=== PATIENT | male | born 1990 | race African-American/Black ===

== ENCOUNTER 2023-10-10 22:54 | Emergency (ER) | payer SELFPAY ==
[2023-10-10] MEDS ORDERED: Acetaminophen 500 MG TAB ONE (23:29)
[2023-10-10] MEDS ORDERED: Morphine 4 MG/ML VIAL ONE (23:29)
[2023-10-10] MEDS ORDERED: CEFAZOLIN 2 GM VIAL ONE (23:30)
[2023-10-10] MEDS ORDERED: Lidocaine 1% w/Epinephrine 1:100K 20 ML VIAL ONE (23:46)
[2023-10-10] MEDS ORDERED: Bupivacaine PF 0.5% 30 ML VIAL ONE (23:47)
[2023-10-11 00:06] LABS: Hematocrit 44.3 % (42.0-52.0); Hemoglobin 15.2 g/dL (14.0-18.0); Mean Corpuscular HGB CONC 34.3 g/dL (32.0-36.0); Mean Corpuscular Hemoglobin 26.7 pg (27.0-31.0); Mean Corpuscular Volume 77.7 fL (78.0-98.0); Mean Platelet Volume 9.8 fL (7.4-10.4); Platelet Count 261 10x3/uL (130-400); RBC Distribution Width 15.2 % (11.5-14.5)
[2023-10-11 00:16] LABS: ALT (SGPT) 14 U/L (8-55); AST (SGOT) 16 U/L (5-34); Albumin 3.7 g/dL (3.5-5.0); Alkaline Phosphatase 61 U/L (40-110); Anion Gap 15 mmol/L (10-20); BUN (Urea Nitrogen) 8 mg/dL (8.9-20.6); Bilirubin, Total 0.6 mg/dL (0.2-1.2); Calc. Creatinine Clearance 0 mL/min (70-130); Calcium 8.9 mg/dL (7.8-10.44); Carbon Dioxide 24 mmol/L (22-29); Chloride 105 mmol/L (98-107); Estimated GFR 77; Globulin 2.7 g/dL (2.4-3.5); Glucose 131 mg/dL (70-105); Potassium 2.9 mmol/L (3.5-5.1); Protein, Total 6.4 g/dL (6.0-8.3); Sodium 141 mmol/L (136-145)
[2023-10-11 00:46] LABS: Band 1 % (5-11); Eosinophils 3 % (0-10); Lymphocytes 30 % (21-51); Microcytosis SLIGHT = 6-15 cells HPF (0-5); Monocytes 2 % (0-10); Neutrophil 51 % (42-75); Platelet Adequacy Comment Platelets Normal; Reactive Lymphocytes 12 % (0-10)
== END 2023-10-11 01:44 | disposition home or self-care (01) ==
LOC: ERS 22:54
DX: S63.281A Dislocation of proximal interphalangeal joint of left index finger, initial encounter (principal); S61.211A Laceration without foreign body of left index finger without damage to nail, initial encounter; W23.1XXA Caught, crushed, jammed, or pinched between stationary objects, initial encounter
CPT/HCPCS: 26770; 80053; 85025; 96365; 96366; 96375; J0665; J2270